=== PATIENT | female | born 1950 | race Caucasian/White ===

== ENCOUNTER 2022-10-10 13:25 | Emergency (ER) | payer OTHER ==
[~2022-10-10] VITALS: Ht 149.9 cm; Wt 54.4 kg
[2022-10-10 13:46] VITALS: BP_SYST 167
--- NOTE | 2022-10-10 17:01 | NUR ---
Patient to ER bed 01 to gown for evaluation. Side rails up. Report given to SAIGE SILVA
[2022-10-10] MEDS ORDERED: PROPOFOL 200MG/ 20ML VIAL (DIPRIVAN) IV ONE (17:15)
--- NOTE | 2022-10-10 17:20 | NUR ---
INSERTED PERIPHERAL IV TO LEFT AC, 20G. TOLERATED WELL. POSITIVE BLOOD RETURN, FLUSHED WELL WITH NO COMPLICATIONS.
--- NOTE | 2022-10-10 18:15 | NUR ---
@1742 propofol 100mg/10ml administered via iv under supervision of MD ANGLIN. @1742 jaw relocated by MD ANGLIN. pt tolerated well. breathing even and unlabored. no acute distress noted. @1755 pt awake, a/o x4 and verbally responsive. denies any pain or discomfort. breathing even and unlabored. no distress noted. safety measures in place.
--- NOTE | 2022-10-10 18:15 | NUR ---
SPOKE W/ IAN LAZARO D STATES NO POLICY FOR WASTE OF REMAINING DIPROVAN IN [facility]. INSTRUCTED TO WASTE IN PHARMACEUTICAL WASTE AT RN STATION
--- NOTE | 2022-10-10 18:38 | NUR ---
Patient remains in bed 1 after completion of moderate sedation. She is speaking well and she has no complaint of her jaw hurting at this time.
[2022-10-10 18:44] VITALS: BP_SYST 163
--- NOTE | 2022-10-10 18:45 | NUR ---
DISCHARGE INSTRUCTIONS REVIEWED WITH PT, PT VERBALIZED UNDERSTANDING AND DENIED ANY QUESTIONS. IV REMOVED FROM L AC, ANGIOCATH INTACT,BLEEDING CONTROLLED. NO COMPLICATIONS NOTED. PT LEFT FROM ED WITH DAUGHTER VIA WHEELCHAIR. PT AWAKE A/O X4 AND VERBALLY RESPONSIVE. NO ACUTE DISTRESS NOTED.
== END 2022-10-10 18:44 | disposition home or self-care (01) ==
LOC: SED 13:25
DX: S03.00XA Dislocation of jaw, unspecified side, initial encounter (principal); I10 Essential (primary) hypertension; Z79.899 Other long term (current) drug therapy; X58.XXXA Exposure to other specified factors, initial encounter; Y93.89 Activity, other specified; Y92.89 Other specified places as the place of occurrence of the external cause; Y99.8 Other external cause status
CPT/HCPCS: 99285; 21480; 99152; J2704